=== PATIENT | female | born 1995 | race Caucasian/White ===

== ENCOUNTER 2018-07-26 12:49 | Day surgery (SDC) | payer BC ==
[~2018-07-26] VITALS: Ht 160 cm; Wt 58.9 kg
[2018-07-26 13:18] VITALS: BP 120/80; PULSE 76; TEMP 97.9
[2018-07-26] MEDS ORDERED: FEMYNOR 28 TAB1 EACH PO (13:18)
[2018-07-26 14:45] VITALS: BP 120/99; PULSE 74; TEMP 97.5
[2018-07-26 15:00] VITALS: BP 101/61; PULSE 60
[2018-07-26] MEDS ORDERED: CANASA 1000MG1000 MG RC (15:05)
[2018-07-26 15:20] VITALS: BP 114/76; PULSE 63
[2018-07-26 15:30] VITALS: BP 105/71; PULSE 57
== END 2018-07-26 15:45 | disposition home or self-care (01) ==
LOC: SDCO 12:49 → EDBD 12:49 → SDCO 14:00
DX: K51.211 Ulcerative (chronic) proctitis with rectal bleeding (principal); K92.1 Melena; K59.00 Constipation, unspecified; J45.909 Unspecified asthma, uncomplicated; Z83.71 Family history of colonic polyps
CPT/HCPCS: J2250; J3010; J7030

== ENCOUNTER → 2019-11-08 | Outpatient (CLI) | payer BC ==
[~2019-11-08] MED LIST: CANASA 1000MG1000 MG RC; FEMYNOR 28 TAB1 EACH PO
== END ==
LOC: COL.VAS 14:12
DX: Z82.49 Family history of ischemic heart disease and other diseases of the circulatory system (principal)